=== PATIENT | female | born 1980 | race Two or more races ===

== ENCOUNTER 2019-12-13 08:56 | Outpatient (CLI) | payer OTHER | END 2019-12-13 09:01 | disposition home or self-care (01) | LOC: MAMO-SONO 08:56 | DX: Z12.31 Encounter for screening mammogram for malignant neoplasm of breast (principal); N94.89 Other specified conditions associated with female genital organs and menstrual cycle; E66.9 Obesity, unspecified; Z13.88 Encounter for screening for disorder due to exposure to contaminants; E78.49 Other hyperlipidemia; I10 Essential (primary) hypertension; Z12.39 Encounter for other screening for malignant neoplasm of breast ==

== ENCOUNTER 2020-03-20 11:25 | Outpatient (CLI) | payer OTHER | END 2020-03-20 13:27 | disposition home or self-care (01) | LOC: SONOGRAMA 11:25 | PROVIDERS: ATTEND Surgery | DX: N60.11 Diffuse cystic mastopathy of right breast (principal); N60.12 Diffuse cystic mastopathy of left breast ==

== ENCOUNTER 2023-05-25 06:55 | Outpatient (CLI) | payer OTHER | END 2023-05-25 06:56 | disposition home or self-care (01) | LOC: LAB 06:55 | PROVIDERS: ATTEND Internal Medicine Hematology & Oncology | DX: D69.6 Thrombocytopenia, unspecified (principal); D51.3 Other dietary vitamin B12 deficiency anemia ==

== ENCOUNTER 2025-04-28 06:21 | Outpatient (CLI) | payer OTHER ==
[2025-04-28 07:30] LABS: BASO % 0.5 % (0.1-1.2); EOS # 0.22 (0.04-0.54); EOS % 3.3 % (0.7-7.0); LYMPH # 2.38 (1.18-3.74); LYMPH % 35.7 % (19.3-53.1); MEAN PLATELET VOLUME 12.20 fl (9.4-12.4); MONO # 0.43 (0.24-0.82); MONO % 6.5 % (4.7-12.5); NEUT # 3.58 (1.56-6.13); NEUT % 53.7 % (34.0-71.1); RED CELL DISTRIBUTION WIDTH 13.1 % (11.6-14.4)
[2025-04-28 10:09] LABS: FOLIC ACID 5.77 ng/ml (4.78-20); VITAMIN D3 25 HYDROXY 47.77 ng/ml (30-120)
[2025-04-28 13:07] LABS: ALT/SGPT 28.0 U/L (12-78); AST/SGOT 14.0 U/L (15-37); BILIRUBIN TOTAL 0.48 mg/dL (0.3-1.2); BUN CREA RATIO 16.0 (7.0-25.0); CREATININE SERUM 0.79 mg/dL (0.55-1.02); FE 58.0 ug/dl (50-170); GFR 79.06; GLOBULINA 2.8 G/DL (2.4-3.5); GLUCOSE FASTING 105.0 mg/dL (65-100); LDH 181.0 U/L (84-246); OSMOLALITY SERUM 285.0 MOSM/KG (275-295); T4 FREE 0.94 NG/ML (0.76-1.46); TSH 4.8 uIU/mL (0.358-3.74)
[2025-04-28 13:42] LABS: MANUAL PLATELET COUNT 264
== END 2025-04-28 06:25 | disposition home or self-care (01) ==
LOC: LAB 06:21
PROVIDERS: ATTEND Internal Medicine Hematology & Oncology
DX: D69.6 Thrombocytopenia, unspecified (principal); D51.3 Other dietary vitamin B12 deficiency anemia; D50.8 Other iron deficiency anemias; R79.9 Abnormal finding of blood chemistry, unspecified; I10 Essential (primary) hypertension; R74.02 Elevation of levels of lactic acid dehydrogenase [LDH]; K76.89 Other specified diseases of liver; E55.9 Vitamin D deficiency, unspecified; C56.9 Malignant neoplasm of unspecified ovary; E03.8 Other specified hypothyroidism; R97.0 Elevated carcinoembryonic antigen [CEA]; R97.8 Other abnormal tumor markers

== ENCOUNTER 2025-08-13 06:42 | Outpatient (CLI) | payer OTHER ==
[2025-08-13 07:18] LABS: URINE APPEARANCE Cloudy; URINE BILIRRUBIN Negative (NEGATIVE); URINE BLOOD Moderate; URINE COLOR Yellow; URINE GLUCOSE Negative (NEGATIVE); URINE KETONE Negative (NEGATIVE); URINE LEUKOCYTE Trace; URINE NITRATE Negative; URINE PROTEIN Negative (NEGATIVE); URINE UROBILINOGEN 1.0 E.U./dl
[2025-08-13 07:19] LABS: BASO % 0.6 % (0.1-1.2); EOS # 0.18 (0.04-0.54); EOS % 3.6 % (0.7-7.0); LYMPH # 1.94 (1.18-3.74); LYMPH % 38.6 % (19.3-53.1); MEAN PLATELET VOLUME 11.60 fl (9.4-12.4); MONO # 0.26 (0.24-0.82); MONO % 5.2 % (4.7-12.5); NEUT # 2.60 (1.56-6.13); NEUT % 51.8 % (34.0-71.1); RED CELL DISTRIBUTION WIDTH 13.0 % (11.6-14.4)
[2025-08-13 07:22] LABS: URINE BACTERIA 7187.7 uL (0.0-1933); URINE EPITHELIAL CELLS 74.1 uL (0.0-38.8); URINE RBC 37.3 uL (0.0-20.8); URINE WBC 55.8 uL (0.0-23.2)
[2025-08-13 07:28] LABS: URINE CAST 0.58 uL (0.0-1.40)
[2025-08-13 08:05] LABS: ALT/SGPT 27.0 U/L (12-78); AST/SGOT 15.0 U/L (15-37); BILIRUBIN TOTAL 0.69 mg/dL (0.3-1.2); BUN CREA RATIO 10.0 (7.0-25.0); CHOL HDL RATIO 4.6 (0-5.0); CREATININE SERUM 0.78 mg/dL (0.55-1.02); GFR 79.87; GLOBULINA 2.7 G/DL (2.4-3.5); GLUCOSE FASTING 99.0 mg/dL (65-100); HDL 43.0 mg/dl (40-60); LDH 178.0 U/L (84-246); LDL 128.0 mg/dl (0-130); OSMOLALITY SERUM 283.0 MOSM/KG (275-295); T4 FREE 1.13 NG/ML (0.76-1.46); TSH 3.29 uIU/mL (0.358-3.74); VLDL 25.0 (0-39)
[2025-08-14 09:07] LABS: LEUTEINIZING HORMONE 33.3 mIU/mL (.); PROGESTERONA < 0.1 ng/mL (.)
[2025-08-14 11:11] LABS: ESTRADIOL SERUM 24.6 pg/mL (.)
[2025-08-15 15:07] LABS: T T 87 ng/dL (4-50); test free 2.2 pg/mL (0.0-4.2)
== END 2025-08-13 06:48 | disposition home or self-care (01) ==
LOC: LAB 06:42
PROVIDERS: ATTEND Internal Medicine Hematology & Oncology
DX: D69.6 Thrombocytopenia, unspecified (principal); D51.3 Other dietary vitamin B12 deficiency anemia; E03.8 Other specified hypothyroidism; R73.01 Impaired fasting glucose; N95.1 Menopausal and female climacteric states; E55.9 Vitamin D deficiency, unspecified; R30.0 Dysuria; N39.0 Urinary tract infection, site not specified

== ENCOUNTER 2025-10-21 07:00 | Outpatient (CLI) | payer OTHER ==
[2025-10-21 07:58] LABS: BASO % 0.3 % (0.1-1.2); EOS # 0.23 (0.04-0.54); EOS % 4.0 % (0.7-7.0); LYMPH # 2.15 (1.18-3.74); LYMPH % 37.0 % (19.3-53.1); MEAN PLATELET VOLUME 11.60 fl (9.4-12.4); MONO # 0.40 (0.24-0.82); MONO % 6.9 % (4.7-12.5); NEUT # 2.99 (1.56-6.13); NEUT % 51.5 % (34.0-71.1); RED CELL DISTRIBUTION WIDTH 12.5 % (11.6-14.4)
[2025-10-21 08:56] LABS: ALT/SGPT 26.0 U/L (12-78); AST/SGOT 12.0 U/L (15-37); BILIRUBIN TOTAL 0.61 mg/dL (0.3-1.2); BUN CREA RATIO 21.0 (7.0-25.0); CREATININE SERUM 0.72 mg/dL (0.55-1.02); FE 84.0 ug/dl (50-170); GFR 87.59; GLOBULINA 2.9 G/DL (2.4-3.5); GLUCOSE FASTING 108.0 mg/dL (65-100); LDH 174.0 U/L (84-246); OSMOLALITY SERUM 290.0 MOSM/KG (275-295); T4 FREE 1.2 NG/ML (0.76-1.46); TSH 2.81 uIU/mL (0.358-3.74)
[2025-10-21 14:58] LABS: FOLIC ACID 7.27 ng/ml (4.78-20)
[2025-10-24 22:06] LABS: T T 81.0 ng/dL (4-50); test free 2.7 pg/mL (0.0-4.2)
== END 2025-10-21 07:15 | disposition home or self-care (01) ==
LOC: LAB 07:00
PROVIDERS: ATTEND Internal Medicine Hematology & Oncology
DX: D50.8 Other iron deficiency anemias (principal); I10 Essential (primary) hypertension; R74.02 Elevation of levels of lactic acid dehydrogenase [LDH]; K76.89 Other specified diseases of liver; E11.9 Type 2 diabetes mellitus without complications; D51.8 Other vitamin B12 deficiency anemias; K51.40 Inflammatory polyps of colon without complications; K90.89 Other intestinal malabsorption; E03.8 Other specified hypothyroidism; R79.9 Abnormal finding of blood chemistry, unspecified; D69.6 Thrombocytopenia, unspecified; D51.3 Other dietary vitamin B12 deficiency anemia; N95.1 Menopausal and female climacteric states; R87.1 Abnormal level of hormones in specimens from female genital organs